=== PATIENT | male | born 1945 | race Caucasian/White ===

== ENCOUNTER 2016-04-02 09:14 | Emergency (ER) | payer MEDICARE ==
[~2016-04-02] VITALS: Ht 180.3 cm; Wt 100.0 kg
[~2016-04-02 09:14] MED LIST: CEPHALEXIN500 M1 PO; COMPAZINE 110 MG/TAB PO; ELIQUIS 5MG PO; FENTANYL 100MCG TD; FLOMAX 0.40.4 MG/CAP PO; FOLIC ACID0.4 MG PO; HCTZ12.5TAB PO; IPRATROPIUM BROM3 M1 IH; MORPHINE 1515 MG/TAB PO; MS CONTIN 115 MG/TAB PO; MULTI VITAMINS1 TAB PO; NEB; PERCOCET 325 MG1 TA2 PO; PERFOROMIS20 MCG/2 M IH; PLAVIX 75MG TAB75 MG PO; PREDNISONE20 MG PO; PRINIVIL10 MG PO; PULMICORT180 MCG/Ac IH; VITAMIN C500 MG PO; ZYLOPRIM 300MG300 MG PO
[2016-04-02 09:18] VITALS: TEMP 98
[2016-04-02 09:54] LABS: BASO % 0.5 % (0.0-2.0); EOS # 0.1 (0.0-0.7); EOS % 1.4 % (0-4.0); GRAN # 4.7 (1.4-6.5); HEMATOCRIT 41.7 % (42.0-52.0); HEMOGLOBIN 13.7 g/dl (13.5-18.0); LYMPH % 14.8 % (20.0-51.0); MEAN CELL VOLUME 96 fl (80.0-100.0); MEAN CORPUSCULAR HEMOGLOBIN 32 pg (27.0-31.0); MEAN CORPUSCULAR HGB CONC 33 g/dl (33.0-37.0); MEAN PLATELET VOLUME 9.8 fl (7.4-10.4); MONO # 0.8 (0.1-0.6); PLATELET COUNT 241 K/mm3 (130-400); RED BLOOD COUNT 4.34 M/mm3 (4.20-5.60); REDCELL DISTRIBUTION WIDTH-CV 15.6 % (11.5-14.5); WHITE BLOOD COUNT 6.6 K/mm3 (4.8-10.8)
[2016-04-02 10:02] LABS: ADJUSTED CALCIUM 10.1 mg/dL (8.4-10.2); ALBUMIN 4.5 gm/dL (3.5-5.0); BILIRUBIN,TOTAL 0.8 mg/dL (0.0-1.0); CALCIUM 10.5 mg/dL (8.4-10.2); CREATININE, serum 1.3 mg/dL (0.66-1.25); POTASSIUM 3.9 mmol/L (3.4-5.0); TOTAL PROTEIN 8.7 gm/dL (6.4-8.2)
[2016-04-02 10:13] LABS: PH 5 (5-8); SQUAMOUS EPITHELIAL None Seen /hpf; URINE APPEARANCE Clear; URINE BACTERIA None Seen /hpf; URINE BILIRUBIN Negative (NEGATIVE); URINE BLOOD Negative (NEGATIVE); URINE COLOR Yellow; URINE GLUCOSE Negative (NEGATIVE); URINE KETONE Negative (NEGATIVE); URINE UROBILINOGEN Negative (NEGATIVE); URINE WBC None Seen /hpf
[2016-04-02] MEDS ORDERED: MORPHINE 1515 MG/TAB PO (10:23)
[2016-04-02] MEDS ORDERED: FLOMAX 0.40.4 MG/CAP PO (10:26)
[2016-04-02 11:54] VITALS: BP 125/75; PULSE 80
== END 2016-04-02 11:57 | disposition home or self-care (01) ==
LOC: COL.ER 09:14
PROVIDERS: Physician Assistant
DX: N40.1 Benign prostatic hyperplasia with lower urinary tract symptoms (principal); R33.8 Other retention of urine; I10 Essential (primary) hypertension; Z87.891 Personal history of nicotine dependence
CPT/HCPCS: J2405; J7030

== ENCOUNTER 2016-04-04 09:49 | Emergency (ER) | payer MEDICARE ==
[~2016-04-04] VITALS: Ht 180.3 cm; Wt 100.9 kg
[2016-04-04 09:56] VITALS: BP 151/85; PULSE 79; TEMP 97.9
== END 2016-04-04 10:59 | disposition home or self-care (01) ==
LOC: COL.ER 09:49
DX: N40.1 Benign prostatic hyperplasia with lower urinary tract symptoms (principal); R33.8 Other retention of urine; Z46.6 Encounter for fitting and adjustment of urinary device

== ENCOUNTER 2016-08-05 14:47 | Inpatient (IN) | payer MEDICARE ==
[~2016-08-05] VITALS: Ht 180.3 cm; Wt 107.8 kg
[2016-08-05] VITALS (309 sets, daily range): BP systolic 86–97; BP diastolic 52–79; PULSE 97–106; TEMP 97.2–97.7; O2SAT 82–100
[2016-08-05 15:43] LABS: MEAN CELL VOLUME 96 fl (80.0-100.0); MEAN CORPUSCULAR HGB CONC 32 g/dl (33.0-37.0); MEAN PLATELET VOLUME 10.3 fl (7.4-10.4); PLATELET COUNT 172 K/mm3 (130-400); RED BLOOD COUNT 2.52 M/mm3 (4.20-5.60); REDCELL DISTRIBUTION WIDTH-CV 21.1 % (11.5-14.5); WHITE BLOOD COUNT 9.1 K/mm3 (4.8-10.8)
[2016-08-05 15:48] LABS: HEMATOCRIT 24.1 % (42.0-52.0); HEMOGLOBIN 7.7 g/dl (13.5-18.0); INR 1.5 (0.8-3.0); MEAN CORPUSCULAR HEMOGLOBIN 31 pg (27.0-31.0); PROTHROMBIN TIME 16.8 SECONDS (9.7-12.8)
[2016-08-05 15:50] LABS: ALANINE AMINOTRANSFERASE 61 U/L (21-72); ALBUMIN 3.1 gm/dL (3.5-5.0); ALKALINE PHOSPHATASE 248 U/L (50-136); ANION GAP 13 mmol/L (7-16); BLOOD UREA NITROGEN 92 mg/dL (9-20); C-REACTIVE PROTEIN 6.2 mg/dL (0.0-0.9); CALCIUM 10.3 mg/dL (8.4-10.2); CARBON DIOXIDE 22 mmol/L (22-30); CHLORIDE 102 mmol/L (98-107); CREATININE, serum 2.32 mg/dL (0.66-1.25); GLUCOSE 123 mg/dL (74-106); POTASSIUM 4.1 mmol/L (3.4-5.0); SODIUM 136 mmol/L (137-145); TOTAL PROTEIN 6.7 gm/dL (6.4-8.2)
[2016-08-05 15:51] LABS: PARTIAL THROMBOPLASTIN TIME 29.5 SECONDS (26.0-37.0)
[2016-08-05 15:59] LABS: B-TYPE NATRIURETIC PEPTIDE 1580 pg/mL (0-125)
[2016-08-05 16:04] LABS: TROPONIN-I < 0.012 ng/mL (0.000-0.034)
[2016-08-05 16:14] LABS: ADD PATHOLOGY DIFF REVIEW NO
[2016-08-05 16:20] LABS: BAND 5 % (0-10); METAMYELOCYTE 2 % (0-0); NEUTROPHILS 84 % (42.0-75.2); POLYCHROMASIA 1+; TOTAL CELLS COUNTED 100
[2016-08-05 16:21] LABS: HYPOCHROMIA 1+
[2016-08-05 16:22] LABS: ANISOCYTOSIS 1+
[2016-08-05 16:57] LABS: PH 5 (5-8); SQUAMOUS EPITHELIAL None Seen /hpf; URINE APPEARANCE Hazy; URINE BACTERIA None Seen /hpf; URINE BILIRUBIN Negative (NEGATIVE); URINE BLOOD 1+ (NEGATIVE); URINE COLOR Yellow; URINE GLUCOSE Negative (NEGATIVE); URINE KETONE Negative (NEGATIVE); URINE UROBILINOGEN Negative (NEGATIVE); URINE WBC 0-2 /hpf
[2016-08-05 19:04] LABS: MAGNESIUM 3.1 mg/dL (1.6-2.3); PHOSPHOROUS 5.9 mg/dL (2.5-4.5)
[2016-08-05 21:04] LABS: ARTERIAL BLD GAS O2 SATURATION 93.3 % (92-100); ARTERIAL BLD GAS TCO2 CT 22.9; ARTERIAL BLOOD GAS BASE EXCESS -3.4 (-2-2); ARTERIAL BLOOD GAS HCO3 21.7 meq/L (22-26); ARTERIAL BLOOD GAS PHT 7.36 C (7.35-7.45); ARTERIAL BLOOD GAS PO2 73.3 mmHg (80-100); ARTERIAL BLOOD GAS PO2T 73.3 (80-100); ARTERIAL BLOOD GAS pH 7.36 (7.35-7.45); OXYHEMOGLOBIN 92.6 %; VENOUS BLOOD GAS BE -3.7 (-4-4); VENOUS BLOOD GAS SAO2 63.4 % (60-80)
[2016-08-05 21:06] LABS: SALICYLATE 1.8 mg/dL
[2016-08-05 21:06] LABS: ALLEN TEST YES; ALLENS TEST RESULT PASS; ATS? YES; VENOUS BLOOD GAS SITE CENTRAL LINE
[2016-08-05 21:19] LABS: TROPONIN-I 0.038 ng/mL (0.000-0.034)
[2016-08-06] VITALS (811 sets, daily range): BP systolic 86–96; BP diastolic 31–48; PULSE 98–102; TEMP 97.4–98.1; O2SAT 33–100
[2016-08-06 01:16] LABS: VENOUS BLOOD GAS BE -6.2 (-4-4)
[2016-08-06 01:17] LABS: VENOUS BLOOD GAS SAO2 65.6 % (60-80); VENOUS BLOOD GAS SITE CENTRAL LINE
[2016-08-06 04:41] LABS: ARTERIAL BLD GAS O2 SATURATION 87.3 % (92-100); ARTERIAL BLD GAS TCO2 CT 18.9; ARTERIAL BLOOD GAS HCO3 17.7 meq/L (22-26); ARTERIAL BLOOD GAS PO2 59.3 mmHg (80-100); ARTERIAL BLOOD GAS PO2T 59.3 (80-100); OXYHEMOGLOBIN 86.3 %
[2016-08-06 04:43] LABS: ALLEN TEST YES; ALLENS TEST RESULT PASS; ATS? YES
[2016-08-06 04:44] LABS: VENOUS BLOOD GAS BE -9.5 (-4-4); VENOUS BLOOD GAS SAO2 62.9 % (60-80); VENOUS BLOOD GAS SITE CENTRAL LINE
[2016-08-06 05:18] LABS: INR 1.6 (0.8-3.0); PROTHROMBIN TIME 18.2 SECONDS (9.7-12.8)
[2016-08-06 05:21] LABS: MEAN CELL VOLUME 99 fl (80.0-100.0); MEAN CORPUSCULAR HGB CONC 31 g/dl (33.0-37.0); MEAN PLATELET VOLUME 10.1 fl (7.4-10.4); PLATELET COUNT 153 K/mm3 (130-400); RED BLOOD COUNT 2.27 M/mm3 (4.20-5.60); REDCELL DISTRIBUTION WIDTH-CV 21.1 % (11.5-14.5); WHITE BLOOD COUNT 7.7 K/mm3 (4.8-10.8)
[2016-08-06 05:25] LABS: ADJUSTED CALCIUM 9.6 mg/dL (8.4-10.2); ALBUMIN 2.3 gm/dL (3.5-5.0); BILIRUBIN,TOTAL 0.8 mg/dL (0.0-1.0); CALCIUM 8.2 mg/dL (8.4-10.2); CREATININE, serum 2.06 mg/dL (0.66-1.25); POTASSIUM 4.3 mmol/L (3.4-5.0); TOTAL PROTEIN 5.3 gm/dL (6.4-8.2)
[2016-08-06 05:28] LABS: ADD PATHOLOGY DIFF REVIEW NO; HEMATOCRIT 22.5 % (42.0-52.0); HEMOGLOBIN 6.9 g/dl (13.5-18.0); MEAN CORPUSCULAR HEMOGLOBIN 30 pg (27.0-31.0)
[2016-08-06 06:07] LABS: ANISOCYTOSIS 1+; BAND 23 % (0-10); NEUTROPHILS 59 % (42.0-75.2); TOTAL CELLS COUNTED 100
[2016-08-06 08:17] LABS: VENOUS BLOOD GAS BE -9.1 (-4-4); VENOUS BLOOD GAS SAO2 72.4 % (60-80)
[2016-08-06 08:18] LABS: VENOUS BLOOD GAS SITE CENTRAL LINE
== END 2016-08-06 17:00 | disposition expired | DRG 871 ==
LOC: COL.ER 14:47 → ICU 17:07
PROVIDERS: Emergency Medicine; Internal Medicine; Internal Medicine Pulmonary Disease
PROC: 02HV33Z Insertion of Infusion Device into Superior Vena Cava, Percutaneous Approach (ICD-10-PCS; principal; 2016-08-05)
DX: A41.9 Sepsis, unspecified organism (principal); J18.9 Pneumonia, unspecified organism; J96.01 Acute respiratory failure with hypoxia; C78.7 Secondary malignant neoplasm of liver and intrahepatic bile duct; C34.11 Malignant neoplasm of upper lobe, right bronchus or lung; Z51.5 Encounter for palliative care; Z66 Do not resuscitate; C79.51 Secondary malignant neoplasm of bone; C79.89 Secondary malignant neoplasm of other specified sites; R65.20 Severe sepsis without septic shock; I10 Essential (primary) hypertension; Z87.891 Personal history of nicotine dependence; Z86.73 Personal history of transient ischemic attack (TIA), and cerebral infarction without residual deficits
CPT/HCPCS: 99239; C1751; C9113; J0456; J0692; J1650; J1720; J1956; J2060; J2270; J2405; J7030; J7050; J7060; J7070; P9016